=== PATIENT | male | born 1995 | race Hispanic/Latino ===

== ENCOUNTER 2018-12-26 07:38 | Emergency (ER) | payer OTHER ==
[2018-12-26] MEDS ORDERED: Lidocaine 1% 20 ML MDV ONE (08:04)
[2018-12-26] MEDS ORDERED: Adacel (T-DAP) 0.5 ML SYRINGE ONE (08:04)
[2018-12-26] MEDS ORDERED: Triple Antibiotic Oint 1 GM Packet ONE (08:04)
--- NOTE | 2018-12-26 08:26 | RAD ---
LEFT HAND FOURTH DIGIT THREE VIEWS: 12/26/18 HISTORY: Crush injury. FINDINGS: Comminuted fracture involving the tuft of the fourth digit. Associated soft tissue swelling. IMPRESSION: Comminuted tuft fracture. POS: [facility]
== END 2018-12-26 08:25 | disposition home or self-care (01) ==
LOC: MADERS 07:38
DX: S62.635B Displaced fracture of distal phalanx of left ring finger, initial encounter for open fracture (principal); W23.0XXA Caught, crushed, jammed, or pinched between moving objects, initial encounter
CPT/HCPCS: 90471; 90715; J2001